=== PATIENT | female | born 1985 ===

== ENCOUNTER 2022-09-15 19:34 | Emergency (ER) | payer OTHER ==
[2022-09-15 20:14] VITALS: BP 109/67; PULSE 69; RESP 16; TEMP 98.3; BMI 25.0
[2022-09-15] MEDS ORDERED: CYCLOBENZAPRINE HCL 10 MG TABLET (FP) PO ONE (20:36)
[2022-09-15] MEDS ORDERED: IBUPROFEN 400 MG TABLET (FP) PO ONE ×2 (20:36→20:41)
[2022-09-15] MEDS ORDERED: CYCLOBENZAPRINE HCL 5 MG TABLET ONE (20:42)
== END 2022-09-15 20:50 | disposition home or self-care (01) ==
LOC: FER 19:34
DX: M62.838 Other muscle spasm (principal)
CPT/HCPCS: 99283-25